=== PATIENT | female | born 1975 | race Caucasian/White ===

== ENCOUNTER 2021-02-07 07:33 | Day surgery (SDC) | payer OTHER ==
[2021-02-02 09:41] LABS: Hemoglobin 12.8 g/dL (12.0-15.5); Mean Corpuscular HGB CONC 33.6 g/dL (32.0-36.0); Mean Corpuscular Hemoglobin 30.8 pg (27.0-33.0); Mean Corpuscular Volume 91.8 fl (81.6-98.3); Mean Platelet Volume 9.5 fl (7.4-10.4); Platelet Count 400 10x3/uL (150-450); RBC Distribution Width 12.5 % (11.5-14.5); Red Blood Cell (RBC) Count 4.15 10x6/uL (3.90-5.03); White Blood Cell (WBC) Count 6.6 10x3/uL (3.5-10.5)
[2021-02-02 10:03] LABS: BHCG - Serum Negative (NEGATIVE); Pregs Control Background? CLEAR/WHITE (CLR/WHITE); Pregs Control Bar Appear? YES (CONTROL BAR)
[2021-02-02 17:46] LABS: SARS-CoV-2 PCR by NAA Not Detected (NotDetected)
[2021-02-03 18:02] LABS: Hemoglobin A1c 5.1 % (4.0-6.0)
[2021-02-05 14:59] VITALS: BMI 30.2
[2021-02-07] MEDS ORDERED: Lidocaine 1% MPF 2 ML VIAL ONE (07:41)
[2021-02-07] MEDS ORDERED: CeleCOXIB 100 MG CAP ONE (07:41)
[2021-02-07] MEDS ORDERED: Gabapentin 300 MG CAP ONE (07:41)
[2021-02-07] MEDS ORDERED: Famotidine/PF 20 mg/2ml Vial ONE (07:42)
[2021-02-07] MEDS ORDERED: Midazolam HCl 2 mg/2 ml Vial ONE ×2 (09:39→10:03)
[2021-02-07] MEDS ORDERED: Fentanyl 250 MCG/5 ML VIAL ONE (10:03)
[2021-02-07] MEDS ORDERED: PROPOFOL 20 ML ONE ×2 (10:03→10:57)
[2021-02-07] MEDS ORDERED: Dexamethasone 20 MG/5 ML VIAL ONE (10:04)
[2021-02-07] MEDS ORDERED: Lidocaine 1% PF 5 ML VIAL ONE (10:04)
[2021-02-07] MEDS ORDERED: Ondansetron PF 4 MG/2 ML Vial ONE (10:04)
[2021-02-07] MEDS ORDERED: Glycopyrrolate 0.2 MG/ML 5 ML SYRINGE ONE (10:04)
[2021-02-07] MEDS ORDERED: Rocuronium Bromide 10 MG/ML (10ML VIAL) ONE (10:04)
[2021-02-07] MEDS ORDERED: EPINEPHrine 1 MG/ML AMP ONE (10:14)
[2021-02-07] MEDS ORDERED: Bupivacaine PF 0.5% 30 ML VIAL ONE (10:14)
[2021-02-07] MEDS ORDERED: Fentanyl 100 MCG/2 ML VIAL ONE ×3 (10:57→12:33)
[2021-02-07] MEDS ORDERED: Ketorolac Tromethamine 30 MG/ML VIAL ONE (11:03)
[2021-02-07] MEDS ORDERED: Labetalol HCl 100 MG/20 ML VIAL ONE (11:24)
[2021-02-07] MEDS ORDERED: HYDROcodone/Acetaminophen 5/325 mg Tablet ONE (13:31)
== END 2021-02-07 15:30 | disposition home or self-care (01) ==
LOC: CSHSDC 07:33
PROVIDERS: ATTEND Obstetrics & Gynecology
PROC: 0UT74ZZ Resection of Bilateral Fallopian Tubes, Percutaneous Endoscopic Approach (ICD-10-PCS; principal; 2021-02-07)
PROC: 0UT94ZZ Resection of Uterus, Percutaneous Endoscopic Approach (ICD-10-PCS; principal; 2021-02-07)
DX: D25.9 Leiomyoma of uterus, unspecified (principal); N87.9 Dysplasia of cervix uteri, unspecified; N83.8 Other noninflammatory disorders of ovary, fallopian tube and broad ligament; D50.0 Iron deficiency anemia secondary to blood loss (chronic); Z79.51 Long term (current) use of inhaled steroids; Z79.899 Other long term (current) drug therapy
CPT/HCPCS: 83036; 84703; 85027; 86850; 86900; 86901; 87070; 87635; 88307; J0171; J0690; J1100; J1885; J2250; J2405; J2704; J3010; S0020; S0028; U0003; U0005